=== PATIENT | male | born 1950 | race Caucasian/White ===

== ENCOUNTER 2017-05-21 01:31 | Emergency (ER) | payer MEDICARE, OTHER ==
[2017-05-21] MEDS ORDERED: Lactated Ringers 1,000 ML IV ONE (02:06)
[2017-05-21] MEDS ORDERED: Morphine 4 MG/ML Syringe IVPUSH ONE (02:07)
[2017-05-21] MEDS ORDERED: Metoclopramide 10 MG/2 ML SDV IVPUSH ONE (02:07)
--- NOTE | 2017-05-21 02:13 | EDM.PDOC ---
ED HPI GENERAL MEDICAL PROBLEM - General Chief Complaint: Abdominal Pain Stated Complaint: ABD PAIN Time Seen by Provider: 05/21/17 01:55 Source of Information: Reports: Patient, RN History Limitations: Reports: Other (no old records) - History of Present Illness INITIAL COMMENTS - FREE TEXT/NARRATIVE: 66 yo male presents with abdominal pain and nausea/vomiting for about 14 hrs. Had something similar in the past that was found to be a bowel obstruction that required surgery. He was tx'd for that in [place], [place]. Since then he has moved to the [facility]. Has had some diarrhea with this. No bleeding or fever. No known exposures. Has vomited about 10 times. Onset Date: 05/20/17 Onset Time: 12:00 Duration: Hour(s):, Waxing/Waning Location: Reports: Abdomen Quality: Reports: Other (cramping) Severity: Moderate Improves with: Reports: None Worsens with: Reports: None Context: Reports: Other (Hx of bowel obstruction) Associated Symptoms: Reports: Nausea/Vomiting. Denies: Fever/Chills Treatments SOCIAL SERVICES ANALYST: Reports: Other (see below) (none) Abdominal Pain Score (Numeric/FACES): 6 - Related Data Allergies Allergy/AdvReac Type Severity Reaction Status Date / Time sumatriptan [From Imitrex] Allergy Fainting Verified 05/21/17 01:49 Home Meds: Home Meds Chlorthalidone [Chlorthalidone] 25 mg PO DAILY 05/21/17 [History] Hydrocodone/Acetaminophen [Hydrocodon-Acetaminophen 5-325] 1 each PO Q4HR [History] Metoprolol Tartrate [Metoprolol Tartrate] 100 mg PO BID 05/21/17 [History] Zolpidem [Ambien] 5 mg PO BEDTIME PRN 05/21/17 [History] Past Medical History HEENT History: Reports: Impaired Vision Cardiovascular History: Reports: Hypertension, [place] Gastrointestinal History: Reports: Bowel Obstruction Musculoskeletal History: Reports: Fracture Neurological History: Reports: Migraines Dermatologic History: Reports: Psoriasis - Past Surgical History HEENT Surgical History: Reports: Tonsillectomy GI Surgical History: Reports: None Musculoskeletal Surgical History: Reports: None Dermatological Surgical History: Reports: None Social & Family History - Tobacco Use Smoking Status *Q: Never Smoker - Caffeine Use Caffeine Use: Reports: Coffee - Recreational Drug Use Recreational Drug Use: No ED ROS GENERAL - Review of Systems Review Of Systems: See Below Constitutional: Reports: No Symptoms HEENT: Reports: No Symptoms Respiratory: Reports: No Symptoms Cardiovascular: Reports: No Symptoms Endocrine: Reports: No Symptoms GI/Abdominal: Reports: Abdominal Pain, Diarrhea, Nausea, Vomiting. Denies: Black Stool, Bloody Stool, Constipation, Difficulty Swallowing, Distension, Flatus, Hematemesis, Hematochezia, Melena, Mucous in Stool : Reports: No Symptoms Musculoskeletal: Reports: No Symptoms Skin: Reports: No Symptoms Neurological: Reports: No Symptoms ED EXAM, GI/ABD - Physical Exam Exam: See Below Exam Limited By: No Limitations General Appearance: Alert, WD/WN, No Apparent Distress Eyes: Bilateral: Normal Appearance Ears: Normal External Exam, Normal Canal, Hearing Grossly Normal, Normal TMs Nose: Normal Inspection, Normal Mucosa, No Blood Throat/Mouth: Normal Inspection, Normal Lips, Normal Oropharynx, Normal Voice, No Airway Compromise Head: Atraumatic, Normocephalic Neck: Normal Inspection, Supple Respiratory/Chest: No Respiratory Distress, Lungs Clear, Normal Breath Sounds, No Accessory Muscle Use Cardiovascular: Regular Rate, Rhythm, No Edema GI/Abdominal Exam: Normal Bowel Sounds, Soft, No Distention, Tender (diffuse, mild to moderate) Extremities: Normal Inspection, Non-Tender, No Pedal Edema Neurological: Alert, Oriented, CN II-XII Intact, Normal Cognition, No Motor/ Sensory Deficits Psychiatric: Normal Affect, Normal Mood Skin Exam: Warm, Dry, Intact, Normal Color, No Rash Lymphatic: No Adenopathy Course - Vital Signs Text/Narrative:: LR 1000 ml IV, Reglan 10 mg IV, MS 4 mg IV-feeling better after these meds, no vomiting in the ER and no diarrhea. Last Recorded V/S: Last Vital Signs Temp 37.0 C 05/21/17 01:46 Pulse 88 05/21/17 03:26 Resp 16 05/21/17 03:26 BP 130/79 05/21/17 03:26 Pulse Ox 97 05/21/17 03:26 - Orders/Labs/Meds Orders: Active Orders 24 hr Category Date Time Status Abdomen 1V Upright [CR] Stat Exams 05/21/17 02:07 Taken Meds: Medications Discontinued Medications Generic Name Dose Route Start Last Admin Trade Name Freq PRN Reason Stop Dose Admin Lactated Ringer's 1,000 mls @ 1,000 mls/hr 05/21/17 02:06 05/21/17 02:27 Ringers, Lactated IV 05/21/17 03:05 1,000 mls/hr BOLUS ONE Administration Metoclopramide HCl 10 mg 05/21/17 02:07 05/21/17 02:28 Reglan IVPUSH 05/21/17 02:08 10 mg ONETIME ONE Administration Morphine Sulfate 4 mg 05/21/17 02:07 05/21/17 02:31 Morphine IVPUSH 05/21/17 02:08 4 mg ONETIME ONE Administration - Radiology Interpretation Free Text/Narrative:: Upright abdominal X-ray-mild ileus with a few air-fluid levels in the RUQ Departure - Departure Time of Disposition: 03:33 Disposition: Home, Self-Care 01 Condition: Fair Clinical Impression: Nausea vomiting and diarrhea - Discharge Information Referrals: PCP,None [Primary Care Provider] - Forms: ED Department Discharge - My Orders Last 24 Hours: My Active Orders 05/21/17 02:07 Abdomen 1V Upright [CR] Stat - Assessment/Plan Last 24 Hours: My Active Orders 05/21/17 02:07 Abdomen 1V Upright [CR] Stat
--- NOTE | 2017-05-21 11:06 | CR ---
Abdomen 1V Upright HISTORY: Pain COMPARISON: None FINDINGS: Gallstones within the gallbladder in the right upper quadrant. Nonspecific air-fluid levels within small bowel in the right abdomen which do not appear to be dilated. No evidence for mechanica l bowel obstruction or free air. Impression: No evidence for acute abdominal process.
== END 2017-05-21 03:53 | disposition home or self-care (01) ==
LOC: JP.ED 01:31
DX: K56.7 Ileus, unspecified (principal); R19.7 Diarrhea, unspecified; I10 Essential (primary) hypertension; Z79.899 Other long term (current) drug therapy; Z88.8 Allergy status to other drugs, medicaments and biological substances
CPT/HCPCS: 74018; 96361; 96374; 96375; 99284; J2270; J2765; J7120

== ENCOUNTER 2017-08-17 06:16 | Day surgery (SDC) | payer MEDICARE, OTHER ==
[2017-08-17] MEDS ORDERED: Lactated Ringers 1,000 ML IV SCH (07:00)
[2017-08-17] MEDS ORDERED: Midazolam 1 MG/ML 2 ML SDV ONE (07:19)
[2017-08-17] MEDS ORDERED: fentaNYL 100 MCG/2 ML SDV ONE (07:19)
[2017-08-17] MEDS ORDERED: Propofol 200 MG/20 ML SDV ONE ×2 (07:19→08:20)
[2017-08-17] MEDS ORDERED: Lidocaine 1% 2 ML ONE (07:21)
--- NOTE | 2017-08-17 11:49 | PROC ---
DATE OF PROCEDURE: 08/17/2017 INDICATION: Mark is a 66-year-old male, who comes in for a screening colonoscopy. He does have a history of colonic polyps in the past. The risks and benefits were explained to the patient, and he was taken to the OR. PROCEDURE IN DETAIL: Anesthesia was given by nurse senior construction estimator. During the procedure, we used 2 mg of Versed, 2 mL of fentanyl, and 400 mg of propofol. The Olympus 180AL scope was used. With a gloved finger, the rectum was examined, and the prostate was absent. The tube was then placed into the rectum and advanced under direct vision. We did get to the ascending colon and had to use external pressure in order to get to the cecum. We got to the cecum then without difficulty. Upon retraction of the tube, noted no ulceration and no abnormality, except for infrequent diverticula. The entire colon revealed no polyps including in the sigmoid and rectum, no abnormality. The tube was removed. The patient tolerated the procedure well. PREOPERATIVE DIAGNOSIS: History of polyps. POSTOPERATIVE DIAGNOSIS: Normal colon, except for diverticula. Gabriel Moreno MD /[id number]
== END 2017-08-17 09:45 | disposition home or self-care (01) ==
LOC: JP.SDS 06:16
PROVIDERS: ATTEND Internal Medicine
DX: Z12.11 Encounter for screening for malignant neoplasm of colon (principal); K57.30 Diverticulosis of large intestine without perforation or abscess without bleeding; Z86.010 Personal history of colon polyps; I10 Essential (primary) hypertension; Z88.8 Allergy status to other drugs, medicaments and biological substances
CPT/HCPCS: G0105; J2250; J2704; J3010; J7120; J2001

== ENCOUNTER 2021-10-20 14:07 | Emergency (ER) | payer MEDICARE, OTHER | END 2021-10-20 15:18 | disposition home or self-care (01) | LOC: JP.ED 14:07 | DX: R10.84 Generalized abdominal pain (principal); I10 Essential (primary) hypertension; I25.2 Old myocardial infarction; Z88.8 Allergy status to other drugs, medicaments and biological substances | CPT/HCPCS: 99282; 99283 ==

== ENCOUNTER 2021-11-18 06:29 | Day surgery (SDC) | payer MEDICARE, OTHER ==
[2021-11-18] MEDS ORDERED: Sodium Chloride 0.9% 1,000 ML IV SCH (07:00)
[2021-11-18] MEDS ORDERED: fentaNYL 100 MCG/2 ML SDV ONE (07:21)
[2021-11-18] MEDS ORDERED: Propofol 200 MG/20 ML SDV ONE ×2 (07:21→09:31)
== END 2021-11-18 10:34 | disposition home or self-care (01) ==
LOC: JP.SDS 06:29
PROVIDERS: ATTEND Internal Medicine
DX: K29.50 Unspecified chronic gastritis without bleeding (principal); R13.10 Dysphagia, unspecified; J44.9 Chronic obstructive pulmonary disease, unspecified; I10 Essential (primary) hypertension; I25.2 Old myocardial infarction; E66.9 Obesity, unspecified; K21.9 Gastro-esophageal reflux disease without esophagitis; Z01.812 Encounter for preprocedural laboratory examination; Z20.822 Contact with and (suspected) exposure to COVID-19
CPT/HCPCS: 43239; 43248; 88305; 88342; J2704; J3010; J7030; U0002

== ENCOUNTER 2025-04-12 09:50 | Emergency (ER) | payer OTHER, MEDICARE ==
[2025-04-12] MEDS ORDERED: Naloxone 0.4 MG/ML SDV IVPUSH PRN (09:59)
[2025-04-12 10:08] LABS: BASOPHILS ABSOLUTE AUTO 0.05 K/uL (0.00-0.10); BASOPHILS PERCENT AUTO 0.8 % (0.1-1.3); EOSINOPHILS ABSOLUTE AUTO 0.21 K/uL (0.00-0.40); EOSINOPHILS PERCENT AUTO 3.2 % (0.0-5.4); IMMATURE GRAN ABSOLUTE AUTO 0.03 K/uL (0.00-0.23); IMMATURE GRAN PERCENT AUTO 0.5 % (0.0-0.7); LYMPHOCYTES ABSOLUTE AUTO 1.48 K/uL (0.8-3.3); LYMPHOCYTES PERCENT AUTO 22.5 % (11.4-47.7); MONOCYTES ABSOLUTE AUTO 0.57 K/uL (0.20-0.90); MONOCYTES PERCENT AUTO 8.7 % (3.3-12.6); NEUTROPHILS ABSOLUTE AUTO 4.24 K/uL (1.0-7.6); NEUTROPHILS PERCENT AUTO 64.3 % (40.0-78.1); PLATELET COUNT,PLT 246 K/uL (130-375); RED BLOOD CELL COUNT 4.73 M/uL (4.14-5.76); WHITE BLOOD CELL COUNT,WBC 6.6 K/uL (3.2-11.0)
[2025-04-12] MEDS: Ondansetron 4 MG/2 ML SDV IVPUSH ONE (10:11)
[2025-04-12 10:25] LABS: INR 1.0
[2025-04-12] MEDS ORDERED: Sodium Chloride 0.9% 10 ML Syringe FLUSH ONE (10:25)
[2025-04-12 10:30] LABS: A/G RATIO 0.5 (1.2-2.2); ALANINE AMINOTRANSFERASE,ALT 22 U/L (12-78); ASPARTATE AMNIOTRANSFERASE,AST 19 U/L (15-37); BILIRUBIN TOTAL 0.8 mg/dL (0.2-1.0); BLOOD UREA NITROGEN,BUN 27 mg/dL (7-18); CARBON DIOXIDE,CO2 30 mmol/L (21-32); CHLORIDE,CL 101 mmol/L (100-108); CREATININE 1.6 mg/dL (0.8-1.3); EST CRCL DRUG DOSING (CG) 43.09 mL/min; ESTIMATED GFR 46 mL/min (>60); GLUCOSE RANDOM 106 mg/dL (74-106); POTASSIUM,K 3.4 mmol/L (3.6-5.2); PROTEIN TOTAL,TP 7.7 g/dL (6.4-8.2); SODIUM,NA 141 mmol/L (140-148)
[2025-04-12] MEDS: Iopamidol 612 MG/ML 100 ML Bottle IV SCH (10:43)
[2025-04-12 11:51] LABS: APPEARANCE,URINE CLEAR (CLEAR); GLUCOSE,URINE NEGATIVE (NEGATIVE); OCCULT BLOOD,URINE NEGATIVE (NEGATIVE)
[2025-04-12] MEDS: Sodium Chloride 0.9% 10 ML Syringe FLUSH ONE (11:52)
[2025-04-12] MEDS: Iopamidol 755 Mg/ML 100 ML Bottle IV SCH (11:52)
[2025-04-12 12:11] LABS: SQUAMOUS EPITHELIAL CELLS,UR FEW /HPF; UROTHELIAL CELLS,URINE NOT SEEN /HPF
[2025-04-12] MEDS ORDERED: Iopamidol 755 Mg/ML 100 ML Bottle IV ONE (12:15)
== END 2025-04-12 13:01 | disposition home or self-care (01) ==
LOC: JP.ED 09:50
DX: S12.500A Unspecified displaced fracture of sixth cervical vertebra, initial encounter for closed fracture (principal); S20.211A Contusion of right front wall of thorax, initial encounter; I10 Essential (primary) hypertension; I25.2 Old myocardial infarction; M19.90 Unspecified osteoarthritis, unspecified site; Z88.8 Allergy status to other drugs, medicaments and biological substances; Z79.82 Long term (current) use of aspirin; Z79.899 Other long term (current) drug therapy; V89.2XXA Person injured in unspecified motor-vehicle accident, traffic, initial encounter
CPT/HCPCS: 36415; 70498; 71260; 72125; 76377; 80053; 80307; 81001; 85025; 85610; 96374; 96375; 99285; J1171; J2405; J7030; Q9967; 99284